=== PATIENT | female | born 1970 | race African-American/Black ===

== ENCOUNTER 2018-01-02 18:44 | Emergency (ER) | payer SELFPAY ==
[~2018-01-02] VITALS: Ht 165.1 cm; Wt 65.0 kg
[2018-01-02] MEDS ORDERED: IBUPROFEN 600MG TABLET PO ONE (19:15)
[2018-01-02] MEDS ORDERED: TETANUS, DIPHTHERIA, PERTUSSIS VAC/PF 0.5ML (>7YR OLD) IM ONE (19:15)
[2018-01-02] MEDS ORDERED: LIDOCAINE 1%/EPI 1:100,000 10 ML VIAL IJ ONE (19:15)
[2018-01-02 21:48] VITALS: BP 115/78
== END 2018-01-02 21:47 | disposition home or self-care (01) ==
LOC: ER 18:44
DX: S81.011A Laceration without foreign body, right knee, initial encounter (principal); R03.0 Elevated blood-pressure reading, without diagnosis of hypertension; Y07.03 Male partner, perpetrator of maltreatment and neglect; W01.110A Fall on same level from slipping, tripping and stumbling with subsequent striking against sharp glass, initial encounter; Y93.89 Activity, other specified; Y92.098 Other place in other non-institutional residence as the place of occurrence of the external cause; Z23 Encounter for immunization
CPT/HCPCS: 12002; 73560; 81025; 90471; 90715; 99284; J3490; L1830; X7700; Z7610

== ENCOUNTER 2018-01-03 17:35 | Emergency (ER) | payer SELFPAY ==
[~2018-01-03] VITALS: Ht 162.6 cm; Wt 65.0 kg
[2018-01-04] MEDS ORDERED: IBUPROFEN 600MG TABLET PO ONE (00:15)
[2018-01-04 00:27] VITALS: BP 127/83
== END 2018-01-04 00:40 | disposition home or self-care (01) ==
LOC: ER 17:35
DX: T81.30XD Disruption of wound, unspecified, subsequent encounter (principal); F17.200 Nicotine dependence, unspecified, uncomplicated; Z90.81 Acquired absence of spleen; Z98.890 Other specified postprocedural states
CPT/HCPCS: 99283

== ENCOUNTER 2018-01-16 10:57 | Emergency (ER) | payer SELFPAY ==
[~2018-01-16] VITALS: Ht 157.5 cm; Wt 67.0 kg
[2018-01-16] MEDS ORDERED: IBUPROFEN 600MG TABLET PO ONE (12:30)
[2018-01-16 13:01] VITALS: BP 140/89
== END 2018-01-16 13:04 | disposition home or self-care (01) ==
LOC: ER 12:41
DX: Z48.02 Encounter for removal of sutures (principal); F17.210 Nicotine dependence, cigarettes, uncomplicated
CPT/HCPCS: 99282

== ENCOUNTER 2022-08-09 21:55 | Emergency (ER) | payer BC ==
[~2022-08-09] VITALS: Ht 157.5 cm; Wt 74.3 kg
[2022-08-09] MEDS ORDERED: MORPHINE SULFATE 4 MG/ML CPJ (NOT FOR IM USE) IV STA (23:59)
[2022-08-09] MEDS ORDERED: ONDANSETRON HCL 4MG/2ML INJ IV STA (23:59)
[2022-08-10] MEDS ORDERED: SODIUM CHLORIDE 0.9% 1,000 ML IV ONE
[2022-08-10 00:25] LABS: BASOPHILS % 0.3 % (0.0-2.0); EOSINOPHILS % 0.5 % (0.0-5.0); HEMATOCRIT. 36.6 % (36.0-48.0); HEMOGLOBIN. 12.1 g/dL (12.0-16.0); LYMPHOCYTES % 34.5 % (20.0-50.0); MEAN CORPUSCULAR HEMOGLOBIN 33.3 pg (28.0-32.0); MEAN CORPUSCULAR VOLUME 100.7 fL (81.0-99.0); MEAN PLATELET VOLUME 6.6 fl (7.4-10.4); MONOCYTES % 9.5 % (2.0-8.0); NEUTROPHILS % 55.2 % (40.0-76.0); PLATELET 253 x1000/uL (130-400); RED BLOOD CELL COUNT 3.63 mill/uL (4.2-5.4); RED CELL DISTRIBUTION WIDTH 14.4 % (11.6-14.6)
[2022-08-10] MEDS ORDERED: HYDROCODONE/ACETAMINOPHEN 5/325MG TABLET PO ONE (00:30)
[2022-08-10 00:36] LABS: CHLORIDE 110 mEq/L (98-107)
[2022-08-10 00:46] LABS: ETHANOL BLOOD 273 mg/dL
[2022-08-10] MEDS ORDERED: IBUP-2028 MT (01:36)
[2022-08-10] MEDS ORDERED: HYDR-4001 MT (01:36)
[2022-08-10 02:01] VITALS: BP 118/76
== END 2022-08-10 02:00 | disposition home or self-care (01) ==
LOC: ER 21:55
DX: S22.32XA Fracture of one rib, left side, initial encounter for closed fracture (principal); R07.81 Pleurodynia; Y08.89XA Assault by other specified means, initial encounter; Y93.89 Activity, other specified; Y92.89 Other specified places as the place of occurrence of the external cause; Y99.8 Other external cause status
CPT/HCPCS: 36415; 71045; 71250; 80053; 80320; 83880; 84484; 85025; 93005; 99285; J7030; G0480